=== PATIENT | female | born 1955 | race Caucasian/White ===

== ENCOUNTER 2023-07-27 09:38 | Outpatient (CLI) | payer MEDICARE, BC, SELFPAY | END 2023-07-27 09:39 | disposition home or self-care (01) | LOC: NFLDREF 07-28 13:02 | PROVIDERS: PCP Internal Medicine; Referring Provider Internal Medicine; Visit Provider Internal Medicine | DX: M85.80 Other specified disorders of bone density and structure, unspecified site (principal) | CPT/HCPCS: 82306 ==

== ENCOUNTER 2023-10-19 08:54 | Outpatient (CLI) | payer MEDICARE, BC, SELFPAY ==
--- NOTE | 2023-10-19 09:15 | CRLHL7_ITS ---
For Patients: As a result of the Century Cures Act, medical imaging exams and procedure reports are released immediately into your electronic medical record. You may view this report before your referring provider. If you have questions, please contact your health care provider. BILATERAL SCREENING MAMMOGRAM WITH COMPUTER-AIDED DETECTION TECHNIQUE: CC and MLO views were obtained. These mammographic images have been obtained using full-field digital technique. These mammographic images were interpreted with the benefit of computer-aided detection. COMPARISON FILM: 10/26/21. FINDINGS: There are scattered areas of fibroglandular density IMPRESSION: There is no radiographic evidence for malignancy. ASSESSMENT: BI-RADS Category 1: Negative RECOMMENDATION: Routine screening mammogram in 1 year. A lay language report of this examination will be provided to the patient. Nico Heaton M.D. Diagnostic Radiologist [email or web address] RENAN/tiff Transcribed: 5:45 p.mArcadio matthew/Dictated by: Nico Heaton MD @ 10/22/2023 12:40:00 PM (Electronically Signed)
== END 2023-10-19 08:55 | disposition home or self-care (01) ==
LOC: MAMMO 08:55
PROVIDERS: PCP Internal Medicine; Visit Provider Internal Medicine
DX: Z12.31 Encounter for screening mammogram for malignant neoplasm of breast (principal)
CPT/HCPCS: 77067

== ENCOUNTER 2023-10-30 10:00 | Outpatient (RCR) | payer MEDICARE, BC, SELFPAY ==
--- NOTE | 2023-08-20 13:33 | PT.OPEX ---
PT [place] Out[facility] Eval PT [facility] Outpatient Eval Start: 08/20/23 07:39 Freq: Status: Active Protocol: Document 08/20/23 07:41 LITZY (Rec: 08/20/23 13:29 LITZY [id number]) E-signed By Ger Godwin PT Physical Therapy Outpatient Evaluation Insurance Information Insurance Name Medicare B,Blue [employer] Medical Diagnosis Bilateral hip trochanteric bursitis Bilateral ITB syndrome Treating Diagnosis Gluteus medius weakness Gluteus medius and piriformis spasm Referring MD Johnson Subjective Subjective Pt. reports having bilateral lateral hip and thigh pain symptoms which started insidiously about 6 months ago . She does have some LBP as well. She was in therapy a couple years ago for similar symptoms which responded well to therapy and her HEP. She has trouble with walking longer distances especially on hilly ground limited ability to lie on her sides to sleep. Hip X-rays a couple years ago were negative for OA. She is retired. Her goal is to walk daily with her dog without pain or limitations. Pain Comments 2-4 Date of Last Physician Visit 07/24/23 Current Work Status Retired Objective Other/Pertinent Objective LROM: flexion 90%; extension 75%; bilat SBing 75%. Hip ROM: normal bilateral IR with mild/moderate limitations in ER due to piriformis tightness and hip joint hypomobility. negative SLR and slump testing Pain and hypertonus with palpation to gluteus medius and piriformis and pain at lateral greater trochanter. ITB tightness with positive Lc Functional weakness of gluteus medius and abdominals Assessment Assessment/Impression Objectively, pt. demonstrates; decreased balance abilities on single leg stance with functional gluteus medius weakness noted; Mild limitations in LROM without symptom provocation in hips/ thighs; increased lumbar lordosis posture; abdominal weakness; gluteus medius weakness; pain with palpation to bilateral greater trochanter areas and ITB; negative slump and SLR testing ; tightness of gluteal muscles and ITB with positive Lc test; positive ITB compression testing; and general core deconditioning. Primary Functional Limitations sleeping on sides; walking; steps; squatting Plan of Care Rehabilitation Potential Excellent Physical Therapy Goals 1. Pt. will be independent with HEP for self maintenance in 8 weeks. 2. Pt. will demonstrate improved hip mobility and gluteal strength in 8 weeks. 3. Pt. will be able to walk and sleep with minimal difficulty in 8 weeks. Coordination/Communication With Referral Source Treatment Plan/Direct Interventions Joint Mobilization,Manual Therapy,Self-Care/Home Management,Therapeutic Exercises Frequency/Duration Weekly for 8 weeks. Patient Will Be Discharged From Therapy Independent w/HEP, Independently Progressing Evaluation Billing Complexity Low Certification Information Initial Certification Date 08/20/23 Ending Certification Date 11/13/23 Provider Signature Shows Agreement With POC & Medical Necessity Physician Signature & Date Requested Please Sign/Date Here Physician Comment/Change : Physician NPI Number #
== END 2023-10-30 11:19 | disposition home or self-care (01) ==
PROVIDERS: PCP Internal Medicine; Visit Provider Internal Medicine
DX: M76.31 Iliotibial band syndrome, right leg (principal); M76.32 Iliotibial band syndrome, left leg; M70.61 Trochanteric bursitis, right hip; M70.62 Trochanteric bursitis, left hip; R53.1 Weakness; R25.2 Cramp and spasm; Z51.89 Encounter for other specified aftercare
CPT/HCPCS: 97110; 97140; 97161

== ENCOUNTER 2024-09-22 14:57 | Outpatient (CLI) | payer MEDICARE, BC, SELFPAY | END 2024-09-22 14:58 | disposition home or self-care (01) | PROVIDERS: PCP Internal Medicine; Visit Provider Internal Medicine | DX: L65.9 Nonscarring hair loss, unspecified (principal); M85.88 Other specified disorders of bone density and structure, other site; R35.0 Frequency of micturition; M85.80 Other specified disorders of bone density and structure, unspecified site; R03.0 Elevated blood-pressure reading, without diagnosis of hypertension | CPT/HCPCS: 80048; 82306; 82728; 84443 ==

== ENCOUNTER 2024-12-31 12:43 | Outpatient (CLI) | payer MEDICARE, BC, SELFPAY | END 2024-12-31 12:44 | disposition home or self-care (01) | PROVIDERS: PCP Internal Medicine; Visit Provider Internal Medicine | DX: Z12.31 Encounter for screening mammogram for malignant neoplasm of breast (principal); M85.89 Other specified disorders of bone density and structure, multiple sites | CPT/HCPCS: 77063; 77067; 77080 ==